=== PATIENT | female | born 1980 | race Caucasian/White ===

== ENCOUNTER 2018-07-03 17:24 | Observation (INO) | payer OTHER ==
[2018-07-03 17:32] VITALS: BMI 25.4
--- NOTE | 2018-07-03 17:34 | PDOC ---
Rapid Medical Evaluation Time Seen by Provider: 07/03/18 17:30 Medical Evaluation: 07/03/18 17:31 The patient c/o: chest pain x 3days, went to Md in [place] and recommended Ed visit, no OCP, no smoking, no sx, no travel The patient on brief exam: no reproducible CP, nsr with inverted T waves in V1-3 Patient ordered for: cardiac w/U The patient to proceed to the ED Discharge Disposition - Diagnosis Chest pain - Referrals - Patient Instructions - Post Discharge Activity
[2018-07-03 18:06] LABS: BASO % 0.4 % (0-2.0); EOS % 0.9 % (0-4.5); HEMATOCRIT 40.6 % (32.4-45.2); HEMOGLOBIN 14.1 GM/dL (10.7-15.3); LYMPH % 23.9 % (8-40); MCH 30.1 pg (25.7-33.7); MCHC 34.6 g/dl (32.0-36.0); MEAN PLT VOLUME 7.8 fl (7.5-11.1); MONO % 4.4 % (3.8-10.2); NEUT % 70.4 % (42.8-82.8); PLATELET COUNT 299 K/MM3 (134-434); RBC 4.67 M/mm3 (3.60-5.2); RDW 12.8 % (11.6-15.6); WHITE BLOOD COUNT 8.6 K/mm3 (4.0-10.0)
--- NOTE | 2018-07-03 18:11 | PDOC ---
Attending Attestation - HPI HPI: 07/03/18 19:51 Patient is a 38 year old female with no significant past medical history who presents to the ED with complaints of chest pain that began 5 years ago. Patient reports chest pain began x5 years ago but states it has currently begun to increase in intensity over the last 3 days, prompting her to go to urgent care for further evaluation. She reports urgent care advised patient to come into the ED for further evaluation. Patient reports chest pain is a squeezing pain that radiates to her back as well experiencing associated symptoms of nausea and shortness of breath. Denies contact with sick individuals, out of state travelling. Denies dysuria, hematuria. Denies constipation, diarrhea. Denies trauma to affected area. Denies any other symptoms. Allergies: None Social history: no smoking. No alcohol. No illicit drugs, Surgical history: Hernia surgery. PMD: Dr. Gianni amin - Physicial Exam PE: 07/03/18 19:51 GENERAL: Awake, alert, and fully oriented, in no acute distress HEAD: No signs of trauma EYES: PERRLA, EOMI, sclera anicteric, conjunctiva clear ENT: Auricles normal inspection, hearing grossly normal, nares patent, oropharynx clear without exudates. Moist mucosa NECK: Normal ROM, supple, no lymphadenopathy, JVD, or masses LUNGS: Breath sounds equal, clear to auscultation bilaterally. No wheezes, and no crackles HEART: No anterior chest wall tenderness. Regular rate and rhythm, normal S1 and S2, no murmurs, rubs or gallops ABDOMEN: Soft, nontender, normoactive bowel sounds. No guarding, no rebound. No masses EXTREMITIES: Normal range of motion, no edema. No clubbing or cyanosis. No cords, erythema, or tenderness NEUROLOGICAL: Cranial nerves II through XII grossly intact. Normal speech, normal gait SKIN: Warm, Dry, normal turgor, no rashes or lesions noted. <Brian Argueta - Last Filed: 07/03/18 19:51> - Resident Resident Name: Prince Wolfe - ED Attending Attestation I have performed the following: I have examined & evaluated the patient, The case was reviewed & discussed with the resident, I agree w/resident's findings & plan, Exceptions are as noted - Medical Decision Making 07/03/18 18:11 I, Dr. Stacy Izquierdo, DO, attest that this document has been prepared under my direction and personally reviewed by me in its entirety. I further attest, that it accurately reflects all work, treatment, procedures and medical decision -making performed by me. 07/03/18 19:33 a/p: 38yo female with intermittent episodes of cp -ekg shows t wave inversions -currently cp free -states intitially had episodes of cp with exertion, but now episodes at rest -will send trops, cxr, will need obs for cards eval and echo -will place in obs under symphony -pt updated with the plan and agrees to stay overnight -pt had gone to urgent care earlier today who sent her here for further eval 07/03/18 19:37 trop negative labs reviewed and stable 07/03/18 19:53 pt given asa in the ED <Stacy Izquierdo - Last Filed: 07/03/18 19:53> Heart Score/ECG Review - ECG Intrepretation Comment:: 07/03/18 18:11 sinus at 75, nl axis, t wave inversions v1-3 - abnl ekg <Stacy Izquierdo - Last Filed: 07/03/18 19:53>
[2018-07-03 18:34] LABS: ALBUMIN 3.8 g/dl (3.4-5.0); ANION GAP 11 MMOL/L (8-16); BILIRUBIN,TOTAL 1.1 mg/dL (0.2-1.0); BLOOD UREA NITROGEN 9 mg/dL (7-18); CALCIUM 8.6 mg/dL (8.5-10.1); CHLORIDE 109 mmol/L (98-107); CO2 22 mmol/L (21-32); CREATININE 0.6 mg/dL (0.55-1.02); GLUCOSE,RANDOM 89 mg/dL (74-106); POTASSIUM 3.7 mmol/L (3.5-5.1); SGOT/AST 18 U/L (15-37); SGPT/ALT 41 U/L (12-78); SODIUM 142 mmol/L (136-145); TOT PROT 7.1 g/dl (6.4-8.2)
[2018-07-03 18:37] LABS: ALK PHOS 74 U/L (45-117)
[2018-07-03] MEDS ORDERED: ASPIRIN 81 MG CHEWABLE TABLETS PO ONE (18:43)
[2018-07-03] MEDS ORDERED: ASPIRIN 81 MG CHEWABLE TABLETS ONE (18:48)
--- NOTE | 2018-07-03 18:50 | PDOC ---
History of Present Illness - General Chief Complaint: Chest Pain Stated Complaint: CHEST PAIN Time Seen by Provider: 07/03/18 17:30 History Source: Patient Exam Limitations: No Limitations - History of Present Illness Initial Comments: 07/03/18 18:45 38 y/o F was sent from urgent care for chest pain. Patient states that pain started 5 years ago but but from last 3 days it has gotten worse. Pain occurs while walking abut now it also happens while lying in bed. Pain last from about 5-10 minutes, squeezing type,radiates to back associated with sob and nausea. Nothing makes it better or worse. Also reports palpitations with pain. Denies difficulty in swallowing, trauma to chest , long travel or sitting for longer period of time. Past History - Past Medical History Allergies/Adverse Reactions: Allergies Allergy/AdvReac Type Severity Reaction Status Date / Time No Known Allergies Allergy Verified 07/03/18 17:32 Home Medications: Ambulatory Orders NK [No Known Home Medication] 07/03/18 COPD: No - Surgical History Abdominal Surgery: (HERNIA) - Suicide/Smoking/Psychosocial Hx Smoking History: Never smoked Hx Alcohol Use: No Drug/Substance Use Hx: No Review of Systems - Review of Systems Constitutional: Yes: Weight Stable. No: Fever, Loss of Appetite, Night Sweats, Weakness HEENTM: No: Blurred Vision, Double Vision, Throat Swelling, Difficulty Swallowing Respiratory: Yes: Shortness of Breath. No: Stridor, Wheezing Cardiac (ROS): Yes: Chest Pain, Lightheadedness, Palpitations ABD/GI: Yes: Nausea. No: Blood Streaked Bowels, Constipated, Diarrhea, Difficulty Swallowing, Poor Appetite, Rectal Bleeding, Indigestion Neurological: No: Headache, Numbness, Paresthesia, Seizure, Tingling *Physical Exam - Vital Signs Last Vital Signs Temp Pulse Resp BP Pulse Ox 98.7 F 79 18 123/73 100 07/03/18 17:28 07/03/18 17:28 07/03/18 17:28 07/03/18 17:28 07/03/18 17:28 - Physical Exam General Appearance: Yes: Appropriately Dressed HEENT: positive: Normal ENT Inspection, Normal Voice, Pharynx Normal. negative : Tonsillar Exudate Neck: negative: Tender, Decreased range of motion Respiratory/Chest: positive: Chest Tender (in left side ), Lungs Clear, Normal Breath Sounds. negative: Respiratory Distress, Rhonchi, Stridor Cardiovascular: positive: Regular Rhythm, Regular Rate, S1, S2. negative: Murmur Gastrointestinal/Abdominal: positive: Normal Bowel Sounds. negative: Tender, Distended, Guarding, Rebound, Tenderness Extremity: negative: Tender, Pedal Edema Neurologic: positive: concrete stone finisher II-XII NML intact, Motor Strength 5/5 ED Treatment Course - LABORATORY CBC & Chemistry Diagram: 07/03/18 17:50 07/03/18 17:50 - ADDITIONAL ORDERS Additional order review: Laboratory Results 07/03/18 17:50 Sodium 142 Potassium 3.7 Chloride 109 H Carbon Dioxide 22 Anion Gap 11 BUN 9 Creatinine 0.6 Creat Clearance w eGFR > 60 Random Glucose 89 Calcium 8.6 Magnesium 2.0 Total Bilirubin 1.1 H AST 18 ALT 41 Alkaline Phosphatase 74 Creatine Kinase 79 Troponin I < 0.02 Total Protein 7.1 Albumin 3.8 07/03/18 17:50 RBC 4.67 MCV 87.0 MCHC 34.6 RDW 12.8 MPV 7.8 Neutrophils % 70.4 Lymphocytes % 23.9 Monocytes % 4.4 Eosinophils % 0.9 Basophils % 0.4 Medical Decision Making - Medical Decision Making 07/03/18 18:53 38 y/o F was sent from urgent care for chest pain. Patient states that pain started 5 years ago but but from last 3 days it has gotten worse. Pain occurs while walking abut now it also happens while lying in bed. Pain last from about 5-10 minutes, squeezing type,radiates to back associated with sob and nausea. Nothing makes it better or worse. Also reports palpitations with pain. Denies difficulty in swallowing, trauma to chest , long travel or sitting for longer period of time. Patient ekg shows t wave inversion in lead v1,v2 and v3. No previous ekg available for comparison. 1st troponin is normal. We will get second troponin. As patient has history suspicious for CAD with t wave inversions we will give her aspirin 324mg and will send cardiology consult. We will keep patient under observation and will get ECHO. HEART score 3 to [address] Plan discussed with attending Dr. Izquierdo. We will keep her in tele obs. Microblog hospitalist for tele obs. Discussed with Dr. Chay iDnh resident. Agreed for tele obs. *DC/Admit/Observation/Transfer Diagnosis at time of Disposition: Chest pain - Referrals - Patient Instructions - Post Discharge Activity
[2018-07-03] MEDS ORDERED: ATORVASTATIN CA 80 MG TABLET (FP) PO ONE (19:12)
[2018-07-03] MEDS ORDERED: LORATADINE 10 MG TABLET PO ONE (19:30)
--- NOTE | 2018-07-03 19:51 | PN ---
Teaching Attending Note Name of Resident: Nancy Jones ATTENDING PHYSICIAN STATEMENT I saw and evaluated the patient. I reviewed the resident's note and discussed the case with the resident. I agree with the resident's findings and plan as documented. SUBJECTIVE: Patient is a 38 year old woman who was sent from urgent care for chest pain. Patient states that pain started 5 years ago but but from last 3 days it has gotten worse. Pain occurs while walking about now it also happens while lying in bed. Pain last from about 5-10 minutes, squeezing type, radiates to her back and is associated with SOB and nausea. Nothing makes it better or worse. Also reports palpitations with pain. Denies difficulty in swallowing, trauma to chest , long travel or sitting for longer period of time. OBJECTIVE: Alert Vital Signs Period Temp Pulse Resp BP Sys/Hammond Pulse Ox Last 24 Hr 98.7 F 79 18 123/73 98-100 HEENT: No Jaundice, eye redness or discharge, PERRLA, EOMI. Normocephalic, atraumatic. External ears are normal and hearing is grossly intact. No nasal discharge. Neck: Supple, nontender. No palpable adenopathy or thyromegaly. No JVD Chest: Good effort. Clear to auscultation and percussion. Heart: Regular. No S3, rub or murmur Abdomen: Not distended, soft, mild epigastric tenderness and no HSM. No rebound or guarding. Normoactive bowel sounds. Ext: Peripheral pulses intact. No leg edema. Skin: Warm and dry. No petechiae, rash or ecchymosis. Neuro: Alert. Oriented x3. CN 2-12 grossly intact. Sensation grossly intact in all four extremities and DTR are symmetric. Home Medications Medication Instructions Recorded NK [No Known Home Medication] 07/03/18 Abnormal Lab Results 07/03/18 17:50 Chloride 109 H Total Bilirubin 1.1 H ASSESSMENT AND PLAN: 1. Chest pain - Pain is atypical. Troponin is negative and EKG shows T wave inversion in V1 to V4. Will observe in telemetry to rule out ACS. Get fasting lipids, ECHO and cardiology consult. Pain may be of gastrointestinal origin in view of epigastric tenderness and elevated bilirubin. Will get upper abdominal sonogram and treat with PPI. GI consult for EGD. 2. DVT prophylaxis - Lovenox 40 mg SQ q 24 hours. 3. Advance directives - Full code
[2018-07-03] MEDS ORDERED: LORATADINE 10 MG TABLET ONE (19:53)
[2018-07-03] MEDS ORDERED: ATORVASTATIN CA 80 MG TABLET (FP) ONE (19:53)
--- NOTE | 2018-07-03 20:56 | HP ---
CHIEF COMPLAINT: Chest pain PCP: Dr. 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 The chest pain started 5 years ago and occurred while walking however now it is occurring at rest and while laying down, It use to come and go but now its constant. At worst the pain has been 9/10, currently it is 5-6/10. She describes the tenderness on her left chest and midsternum, Reproducible with palpation, squeezing, tightness that "Holds her from breathing" and radiates to her back. It is accompanied by SOB, Nausea, Palpitations, Lightheadedness and chills. She says nothing helps relieve the pain. She has been unable to identify any triggers. She does acknowledge some stress from her childrens school but no other feelings of stress or anxiety. Denies any recent trauma/falls, long plane/car rides, OCP use , medication changes. She has had no recent rashes in the area. Her diet does not consist of spicy or greasy food. The pain does not change with movement of her Arm, neck or chest. She has seen Dr. Gann in May for this pain and was given Naproxen however this only helped slightly. Of note, her LMP was one week ago. ER course was notable for: (1) EKG: NSR, T wave inversions in V1-V3 (2) ASA 324, Atorvastatin 80 (3) Recent Travel: Denies PAST MEDICAL HISTORY: Denies PAST SURGICAL HISTORY: Hernia repair (7 years ago) Social History: Smoking: Denies Alcohol: Denies Drugs: Denies Occupation: Cleaning service Residence: Lives in apartment with 2 children Ambulates: without assitance Family History: Allergies No Known Allergies Allergy (Verified 07/03/18 17:32) HOME MEDICATIONS: Home Medications Medication Instructions Recorded NK [No Known Home Medication] 07/03/18 REVIEW OF SYSTEMS CONSTITUTIONAL: Present: chills, Absent: fever, diaphoresis, generalized weakness, malaise, loss of appetite, weight change HEENT: Absent: rhinorrhea, nasal congestion, throat pain, throat swelling, difficulty swallowing, mouth swelling, ear pain, eye pain, visual changes CARDIOVASCULAR: Present: chest pain, lightheadedness Absent: syncope, palpitations, irregular heart rate, peripheral edema RESPIRATORY: Present: shortness of breath, Absent: cough, dyspnea with exertion, orthopnea, wheezing, stridor, hemoptysis GASTROINTESTINAL: Present: Midepigastric abdominal pain, nausea Absent: abdominal distension, vomiting, diarrhea, constipation, melena, hematochezia GENITOURINARY: Absent: dysuria, frequency, urgency, hesitancy, hematuria, flank pain, genital pain MUSCULOSKELETAL: Absent: myalgia, arthralgia, joint swelling, back pain, neck pain SKIN: Absent: rash, itching, pallor HEMATOLOGIC/IMMUNOLOGIC: Absent: easy bleeding, easy bruising, lymphadenopathy, frequent infections ENDOCRINE: Absent: unexplained weight gain, unexplained weight loss, heat intolerance, cold intolerance NEUROLOGIC: Absent: headache, focal weakness or paresthesias, dizziness, unsteady gait, seizure, mental status changes, bladder or bowel incontinence PSYCHIATRIC: Absent: anxiety, depression, suicidal or homicidal ideation, hallucinations. PHYSICAL EXAMINATION Vital Signs - 24 hr 07/03/18 07/03/18 17:28 18:10 Temperature 98.7 F Pulse Rate 79 Respiratory 18 Rate Blood Pressure 123/73 O2 Sat by Pulse 100 98 Oximetry (%) GENERAL: Awake, alert, and fully oriented, in no acute distress. EYES: PERRL, EOMI THROAT: Oropharynx clear without exudates. Moist mucous membranes. NECK: Normal ROM, Supple, No JVD, No carotid bruit LUNGS: Breath sounds equal, clear to auscultation bilaterally. No wheezes, and no crackles. Unable to take very deep breaths as it causes pain HEART: Regular rate and rhythm, normal S1 and S2 without murmur. ABDOMEN: Soft, Tender to palpation in the midepigastrium, not distended, normoactive bowel sounds, no guarding, no rebound, no masses. No hepatomegaly or splenomegaly. MUSCULOSKELETAL: No CVA tenderness. UPPER EXTREMITIES: 2+ pulses, Normal range of motion LOWER EXTREMITIES: 2+ pulses, No calf tenderness. No peripheral edema. Normal range of motion. SKIN: Warm, dry, no rashes or lesions noted, normal capillary refill. Laboratory Results - last 24 hr 07/03/18 07/03/18 07/03/18 17:50 17:50 18:35 WBC 8.6 RBC 4.67 Hgb 14.1 Hct 40.6 MCV 87.0 MCH 30.1 MCHC 34.6 RDW 12.8 Plt Count 299 MPV 7.8 Absolute Neuts (auto) 6.0 Neutrophils % 70.4 Lymphocytes % 23.9 Monocytes % 4.4 Eosinophils % 0.9 Basophils % 0.4 Nucleated RBC % 0 Sodium 142 Potassium 3.7 Chloride 109 H Carbon Dioxide 22 Anion Gap 11 BUN 9 Creatinine 0.6 Creat Clearance w eGFR > 60 Random Glucose 89 Calcium 8.6 Magnesium 2.0 Total Bilirubin 1.1 H AST 18 ALT 41 Alkaline Phosphatase 74 Creatine Kinase 79 Troponin I < 0.02 Total Protein 7.1 Albumin 3.8 Urine HCG, Qual Negative Active Medications Enoxaparin Sodium (Lovenox -) 40 mg SQ DAILY ELODIA Pantoprazole Sodium (Protonix Iv) 40 mg IVPUSH DAILY ELODIA ASSESSMENT/PLAN: 38 y/o primarily french speaking female with no significant PMHx presents with chest pain that has been worsening over the past 3 days and will be observed in Tele 1. Atypical Chest pain R/O ACS - Troponin < 0.02 X1 - EKG: NSR, T wave inversions in V1-V3 - CXR pending - 2nd Troponin and EKG Ordered - Fasting Lipids ordered - Echo ordered for this AM - Cardiology (Dr. Noble) Consulted - NPO after midnight for possible stress test 2. Elevated T. Bili with Midepigastric Tenderness - Abdominal US ordered to r/o cholelithiasis - IV Protonix - GI (Dr. Morel) Consulted 3. FEN - PO Fluids - Lytes wnl - Cholesterol controlled diet 4. PPx - DVT: Lovenox 40mg SQ Q24H Dispo: Tele-Obs Visit type - Emergency Visit Emergency Visit: Yes ED Registration Date: 07/03/18 Care time: The patient presented to the Emergency Department on the above date and was hospitalized for further evaluation of their emergent condition. - New Patient This patient is new to me today: Yes Date on this admission: 07/04/18 - Critical Care Critical Care patient: No Hospitalist Screening - Colonoscopy Questionnaire Colonoscopy Questionnaire: Colonoscopy Questionnaire - Patient: 50 - 75 years old and never had a screening colonoscopy: Unknown History of colon or rectal polyps, or CA: Unknown History of IBD, Crohn's disease or UC: Unknown History of abdominal radiation therapy as a child: Unknown - Relative: 1 with colon or rectal CA, or polyps at age 60 or younger: Unknown Colon or rectal CA diagnosed at age 45 or younger: Unknown Multiple relatives with colon or rectal CA: Unknown - Outcome: Screening Result: Negative Screen
[2018-07-04 07:04] LABS: BASO % 0.4 % (0-2.0); EOS % 2.2 % (0-4.5); HEMATOCRIT 39.9 % (32.4-45.2); HEMOGLOBIN 13.8 GM/dL (10.7-15.3); LYMPH % 27.1 % (8-40); MCH 29.9 pg (25.7-33.7); MCHC 34.5 g/dl (32.0-36.0); MEAN CELL VOLUME 86.6 fl (80-96); MEAN PLT VOLUME 7.5 fl (7.5-11.1); MONO % 4.8 % (3.8-10.2); NEUT % 65.5 % (42.8-82.8); PLATELET COUNT 248 K/MM3 (134-434); RDW 12.7 % (11.6-15.6); WHITE BLOOD COUNT 6.6 K/mm3 (4.0-10.0)
[2018-07-04 07:16] LABS: ALBUMIN 3.3 g/dl (3.4-5.0); ANION GAP 9 MMOL/L (8-16); BILIRUBIN,TOTAL 1.1 mg/dL (0.2-1.0); BLOOD UREA NITROGEN 9 mg/dL (7-18); CALCIUM 8.1 mg/dL (8.5-10.1); CHLORIDE 108 mmol/L (98-107); CO2 23 mmol/L (21-32); CREATININE 0.5 mg/dL (0.55-1.02); GLUCOSE,RANDOM 80 mg/dL (74-106); MAGNESIUM 2.1 mg/dL (1.8-2.4); PHOSPHOROUS 4.1 mg/dL (2.5-4.9); POTASSIUM 3.9 mmol/L (3.5-5.1); SGOT/AST 21 U/L (15-37); SGPT/ALT 37 U/L (12-78); SODIUM 140 mmol/L (136-145); TOT PROT 6.5 g/dl (6.4-8.2)
[2018-07-04 07:17] LABS: ALK PHOS 73 U/L (45-117)
--- NOTE | 2018-07-04 08:10 | CON.GI ---
Consult Consult Specialty:: GI Reason for Consultation:: elevated bili, chest pain - History of Present Illness History of Present Illness: Chart reviewed. Events noted. 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 The chest pain started 5 years ago and occurred while walking however now it is occurring at rest and while laying down, It use to come and go but now its constant. At worst the pain has been 9/10, currently it is 5-6/ 10. She describes the tenderness on her left chest and midsternum, Reproducible with palpation, squeezing, tightness that "Holds her from breathing" and radiates to her back. It is accompanied by SOB, Nausea, Palpitations, Lightheadedness and chills. She says nothing helps relieve the pain. She has been unable to identify any triggers. She does acknowledge some stress from her childrens school but no other feelings of stress or anxiety. Denies any recent trauma/falls, long plane/car rides, OCP use, medication changes. She has had no recent rashes in the area. Her diet does not consist of spicy or greasy food. The pain does not change with movement of her Arm, neck or chest. She has seen Dr. Gann in May for this pain and was given Naproxen however this only helped slightly. Of note, her LMP was one week ago. ER course was notable for: (1) EKG: NSR, T wave inversions in V1-V3 (2) ASA 324, Atorvastatin 80 Normal CBC, CMP (t. bili 1.1) Negative cardiac stress test 07/04/18 US liver 07/04/18: HISTORY PROVIDED: Epigastric pain. Real time examination of the abdomen demonstrates the following: The gallbladder is normal in size. It does contain a 1.5 cm gallstone, as well as a small amount of biliary sludge. While there is no sonographic evidence of acute cholecystitis, if this is clinically suspected, a follow-up HIDA scan may be warranted. There is no evidence of intra or extrahepatic biliary duct dilatation. The liver is normal in size. It is hypoechoic in texture consistent with diffuse fatty infiltration. There are 2 small hypoechoic areas within the right and left lobes that may represent fatty sparing. An hepatic neoplasm cannot be excluded and a follow-up contrast enhanced CT scan, utilizing hepatic protocol, may also be warranted. Hepatopedal flow is documented within the main portal vein. The pancreas is normal in size and texture with no pancreatic masses identified. There is no evidence of hydronephrosis or acute abnormalities of the right kidney. There is no evidence of AAA. The IVC is patent. IMPRESSION: 1. Cholelithiasis. 2. Diffuse fatty infiltration of the liver with possible small hepatic masses versus fatty sparing. Clinical correlation and follow-up recommended. Please see above discussion. Ukrainian-speaking. No melena, hematochezia, hematemesis, jaundice, dysphagia, odynophagia, changes in bowels, weight loss. Mild epigastric tenderness and reproducible, left persistent chest pain on exam. - History Source History Provided By: Patient, Medical Record - Alcohol/Substance Use Hx Alcohol Use: No - Smoking History Smoking history: Never smoked Home Medications - Allergies Allergies/Adverse Reactions: Allergies Allergy/AdvReac Type Severity Reaction Status Date / Time No Known Allergies Allergy Verified 07/03/18 17:32 - Home Medications Home Medications: Ambulatory Orders NK [No Known Home Medication] 07/03/18 Family Disease History - Family Disease History Family History: Unremarkable Review of Systems Findings/Remarks: as per ED, H&P, HPI Physical Exam-GI Vital Signs: Vital Signs Temperature 98.7 F 07/03/18 17:28 Pulse Rate 72 07/04/18 06:00 Respiratory Rate 18 07/04/18 06:00 Blood Pressure 120/70 07/04/18 06:00 O2 Sat by Pulse Oximetry (%) 100 07/04/18 06:00 Constitutional: Yes: Well Nourished, No Distress, Calm Eyes: Yes: Conjunctiva Clear HENT: Yes: Atraumatic Neck: Yes: Supple Cardiovascular: Yes: Regular Rate and Rhythm Respiratory: Yes: Regular Gastrointestinal Inspection: No: Ascites, Distention ...Auscultate: Yes: Normoactive Bowel Sounds ...Palpate: Yes: Tenderness (epig., mild, on deep palpation. Also see HPI). No : Firm/Rigid, Guarding, Mass Neurological: Yes: Alert, Oriented Labs: CBC, BMP 07/04/18 06:30 07/04/18 06:30 Laboratory Last Values WBC 6.6 K/mm3 (4.0-10.0) 07/04/18 06:30 RBC 4.60 M/mm3 (3.60-5.2) 07/04/18 06:30 Hgb 13.8 GM/dL (10.7-15.3) 07/04/18 06:30 Hct 39.9 % (32.4-45.2) 07/04/18 06:30 MCV 86.6 fl (80-96) 07/04/18 06:30 MCH 29.9 pg (25.7-33.7) 07/04/18 06:30 MCHC 34.5 g/dl (32.0-36.0) 07/04/18 06:30 RDW 12.7 % (11.6-15.6) 07/04/18 06:30 Plt Count 248 K/MM3 (134-434) 07/04/18 06:30 MPV 7.5 fl (7.5-11.1) 07/04/18 06:30 Absolute Neuts (auto) 4.3 K/mm3 (1.5-8.0) 07/04/18 06:30 Neutrophils % 65.5 % (42.8-82.8) 07/04/18 06:30 Lymphocytes % 27.1 % (8-40) 07/04/18 06:30 Monocytes % 4.8 % (3.8-10.2) 07/04/18 06:30 Eosinophils % 2.2 % (0-4.5) D 07/04/18 06:30 Basophils % 0.4 % (0-2.0) 07/04/18 06:30 Nucleated RBC % 0 % (0-0) 07/04/18 06:30 Sodium 140 mmol/L (136-145) 07/04/18 06:30 Potassium 3.9 mmol/L (3.5-5.1) 07/04/18 06:30 Chloride 108 mmol/L (98-107) H 07/04/18 06:30 Carbon Dioxide 23 mmol/L (21-32) 07/04/18 06:30 Anion Gap 9 MMOL/L (8-16) 07/04/18 06:30 BUN 9 mg/dL (7-18) 07/04/18 06:30 Creatinine 0.5 mg/dL (0.55-1.02) L 07/04/18 06:30 Creat Clearance w eGFR > 60 (>60) 07/04/18 06:30 Random Glucose 80 mg/dL (74-106) 07/04/18 06:30 Calcium 8.1 mg/dL (8.5-10.1) L 07/04/18 06:30 Phosphorus 4.1 mg/dL (2.5-4.9) 07/04/18 06:30 Magnesium 2.1 mg/dL (1.8-2.4) 07/04/18 06:30 Total Bilirubin 1.1 mg/dL (0.2-1.0) H 07/04/18 06:30 AST 21 U/L (15-37) 07/04/18 06:30 ALT 37 U/L (12-78) 07/04/18 06:30 Alkaline Phosphatase 73 U/L (45-117) 07/04/18 06:30 Creatine Kinase 79 IU/L (26-192) 07/03/18 17:50 Troponin I < 0.02 ng/ml (0.00-0.05) 07/04/18 06:30 Total Protein 6.5 g/dl (6.4-8.2) 07/04/18 06:30 Albumin 3.3 g/dl (3.4-5.0) L 07/04/18 06:30 Triglycerides 118 mg/dL (35-160) 07/04/18 06:30 Cholesterol 179 mg/dL (50-200) 07/04/18 06:30 Total LDL Cholesterol 116 mg/dL (5-100) H 07/04/18 06:30 HDL Cholesterol 63 mg/dL (40-60) H 07/04/18 06:30 Urine HCG, Qual Negative 07/03/18 18:35 Imaging - Results Ultrasound: Report Reviewed Other: Report Reviewed (echo, stress test) Problem List - Problems (1) Atypical chest pain Code(s): R07.89 - OTHER CHEST PAIN (2) Costochondritis Code(s): M94.0 - CHONDROCOSTAL JUNCTION SYNDROME [TIETZE] (3) Epigastric abdominal tenderness Code(s): R10.816 - EPIGASTRIC ABDOMINAL TENDERNESS (4) Cholelithiasis Code(s): K80.20 - CALCULUS OF GALLBLADDER W/O CHOLECYSTITIS W/O OBSTRUCTION Assessment/Plan A 38F with the above history and findings on imaging, labs, exams. Do not suspect significant GI-related pathology at this time requiring hospitalization and an inpatient work up. Recommend OP GI follow up next week.
[2018-07-04] MEDS ORDERED: PANTOPRAZOLE SODIUM 40 MG VIAL IVPUSH SCH (10:00)
[2018-07-04] MEDS ORDERED: ENOXAPARIN NA (PORCINE) 40 MG/0.4 ML DISP.SYRIN SQ SCH (10:00)
[2018-07-04 10:12] LABS: CHOLESTEROL 179 mg/dL (50-200); TRIGLYCERIDES 118 mg/dL (35-160)
[2018-07-04 10:14] LABS: HDL CHOLESTEROL 63 mg/dL (40-60)
--- NOTE | 2018-07-04 10:30 | EKG ---
Test Reason : Blood Pressure : / mmHG Vent. Rate : 071 BPM Atrial Rate : 071 BPM P-R Int : 108 ms QRS Dur : 082 ms QT Int : 414 ms P-R-T Axes : 024 019 028 degrees QTc Int : 449 ms SINUS RHYTHM WITH SHORT [place] OTHERWISE NORMAL ECG NO PREVIOUS ECGS AVAILABLE Confirmed by LATANYA GRANADOS, TULIO ([id number]) on 07/04/2018 10:30:01 AM Referred By: Confirmed By:TULIO PELAEZ MD
--- NOTE | 2018-07-04 11:39 | CON.CARD ---
Cardiology Consult (text) - Consultation Consultation Note: cc: cp hpi: 38 f no sig pmhx here with cp. CP has been present for about 5 years. Occurs daily, central chest tightness, lasts for minutes, occurs with rest or exertion. Worse past few days so came to ER. No sob, palps, dizzy loc pnd orthopnea le edema. 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 No hx hrt dz. pmh: per hpi psh: hernia social: no tob fam: no premature cad or scd ros: per hpi; no nvd fever cough cole vision changes gib hematuria muscle pain meds: Home Medications Medication Instructions Recorded NK [No Known Home Medication] 07/03/18 pe: Vital Signs Period Temp Pulse Resp BP Sys/Hammond Pulse Ox Last 24 Hr 98.7 F-98.9 F 72-79 16-18 110-123/67-75 98-100 nad no jvd rrr s1s2 no mrg cta bl nl eff aao3 no le e/c/c abd nt nd pos bs no jaundice diaphroesi pos dp pt Current Medications Generic Name Dose Route Start Last Admin Trade Name Frekia PRN Reason Stop Dose Admin Enoxaparin Sodium 40 mg 07/04/18 10:00 07/04/18 09:34 Lovenox - SQ 40 mg DAILY [facility] Administration Pantoprazole Sodium 40 mg 07/04/18 10:00 07/04/18 09:35 Protonix Iv IVPUSH 40 mg DAILY [facility]OD[facility] Administration Laboratory Last Values WBC 6.6 K/mm3 (4.0-10.0) 07/04/18 06:30 RBC 4.60 M/mm3 (3.60-5.2) 07/04/18 06:30 Hgb 13.8 GM/dL (10.7-15.3) 07/04/18 06:30 Hct 39.9 % (32.4-45.2) 07/04/18 06:30 MCV 86.6 fl (80-96) 07/04/18 06:30 MCH 29.9 pg (25.7-33.7) 07/04/18 06:30 MCHC 34.5 g/dl (32.0-36.0) 07/04/18 06:30 RDW 12.7 % (11.6-15.6) 07/04/18 06:30 Plt Count 248 K/MM3 (134-434) 07/04/18 06:30 MPV 7.5 fl (7.5-11.1) 07/04/18 06:30 Absolute Neuts (auto) 4.3 K/mm3 (1.5-8.0) 07/04/18 06:30 Neutrophils % 65.5 % (42.8-82.8) 07/04/18 06:30 Lymphocytes % 27.1 % (8-40) 07/04/18 06:30 Monocytes % 4.8 % (3.8-10.2) 07/04/18 06:30 Eosinophils % 2.2 % (0-4.5) D 07/04/18 06:30 Basophils % 0.4 % (0-2.0) 07/04/18 06:30 Nucleated RBC % 0 % (0-0) 07/04/18 06:30 Sodium 140 mmol/L (136-145) 07/04/18 06:30 Potassium 3.9 mmol/L (3.5-5.1) 07/04/18 06:30 Chloride 108 mmol/L (98-107) H 07/04/18 06:30 Carbon Dioxide 23 mmol/L (21-32) 07/04/18 06:30 Anion Gap 9 MMOL/L (8-16) 07/04/18 06:30 BUN 9 mg/dL (7-18) 07/04/18 06:30 Creatinine 0.5 mg/dL (0.55-1.02) L 07/04/18 06:30 Creat Clearance w eGFR > 60 (>60) 07/04/18 06:30 Random Glucose 80 mg/dL (74-106) 07/04/18 06:30 Calcium 8.1 mg/dL (8.5-10.1) L 07/04/18 06:30 Phosphorus 4.1 mg/dL (2.5-4.9) 07/04/18 06:30 Magnesium 2.1 mg/dL (1.8-2.4) 07/04/18 06:30 Total Bilirubin 1.1 mg/dL (0.2-1.0) H 07/04/18 06:30 AST 21 U/L (15-37) 07/04/18 06:30 ALT 37 U/L (12-78) 07/04/18 06:30 Alkaline Phosphatase 73 U/L (45-117) 07/04/18 06:30 Creatine Kinase 79 IU/L (26-192) 07/03/18 17:50 Troponin I < 0.02 ng/ml (0.00-0.05) 07/04/18 06:30 Total Protein 6.5 g/dl (6.4-8.2) 07/04/18 06:30 Albumin 3.3 g/dl (3.4-5.0) L 07/04/18 06:30 Triglycerides 118 mg/dL (35-160) 07/04/18 06:30 Cholesterol 179 mg/dL (50-200) 07/04/18 06:30 Total LDL Cholesterol 116 mg/dL (5-100) H 07/04/18 06:30 HDL Cholesterol 63 mg/dL (40-60) H 07/04/18 06:30 Urine HCG, Qual Negative 07/03/18 18:35 cxr: clear lungs ecg: sr nl intervals no ischemic changes a/p: 38 f no sig pmhx here with cp. cp: -chronic for years, likely not cardiac -no signs acs, ecg unremarkable -check echo and ETT, ok for dc from cardiac pov if benign
--- NOTE | 2018-07-04 11:44 | ECHO ---
Name: TISH TERRY Exam:Adult Echocardiogram Study Date: 07/04/2018 07:49 AM Age: 38 yrs Reason For Study: Chest pain Height: 60 in Weight: 130 lb BSA: 1.6 m2 MMode/2D Measurements & Calculations IVSd: 0.85 cm Ao root diam: 2.4 cm LVIDd: 4.2 cm LA dimension: 2.6 cm LVIDs: 2.4 cm LVPWd: 0.91 cm EDV(Teich): 77.3 ml ESV(Teich): 20.5 ml Doppler Measurements & Calculations MV E max lester: 98.5 cm/sec Med Peak E' Lester: 10.3 cm/sec MV A max lester: 52.9 cm/sec Med E/e': 9.5 MV E/A: 1.9 Lat Peak E' Lester: 8.7 cm/sec MV dec time: 0.32 sec Lat E/e': 11.3 Procedure A two-dimensional transthoracic echocardiogram with color flow and Doppler was performed. Left Ventricle The left ventricular size, thickness and function are normal. The left ventricular ejection fraction is normal. Left Ventricular Filling pattern is normal for age. The left ventricular wall motion is rich l. Right Ventricle The right ventricle is normal in size and function. Atria Normal left and right atrial size and function. Mitral Valve The mitral valve is normal in structure and function. There is no mitral valve stenosis. There is tra ce mitral regurgitation. Tricuspid Valve The tricuspid valve is normal in structure and function. There is no tricuspid stenosis. There was insufficient TR detected to calculate RV systolic pressure. Aortic Valve The aortic valve is not well visualized. No hemodynamically significant valvular aortic stenosis. No aortic regurgitation is present. Pulmonic Valve The pulmonic valve is not well visualized. There is no pulmonic valvular stenosis. There is no pulmon ic valvular regurgitation. Great Vessels The aortic root is normal size. Pericardium/Pleura There is no pericardial effusion. Interpretation Summary The left ventricular size, thickness and function are normal The left ventricular ejection fraction is normal. The left ventricular wall motion is normal. There is trace mitral regurgitation. There was insufficient TR detected to calculate RV systolic pressure. Left Ventricular Filling pattern is normal for age. MD Artie James 07/04/2018 11:28 AM
--- NOTE | 2018-07-04 12:56 | EKG ---
Test Reason : Blood Pressure : / mmHG Vent. Rate : 070 BPM Atrial Rate : 070 BPM P-R Int : 126 ms QRS Dur : 086 ms QT Int : 414 ms P-R-T Axes : 012 017 017 degrees QTc Int : 447 ms NORMAL SINUS RHYTHM NORMAL ECG WHEN COMPARED WITH ECG OF 04-JUL-2018 01:31, NO SIGNIFICANT CHANGE WAS FOUND Confirmed by TULIO PELAEZ MD ([id number]) on 07/04/2018 12:56:10 PM Referred By: Confirmed By:TULIO PELAEZ MD
--- NOTE | 2018-07-04 12:58 | TRE ---
Protocol Name : JOSIAH Max Work Load (METS*10) : 90 Time In Exercise Phase : 00:07:21 Max. Systolic BP : 140 mmHg Max Diastolic BP : 76 mmHg Max Heart Rate : 160 BPM Max Predicted Heart Rate : 184 BPM Attending Physician : DR. PELAEZ Reason For Termination : Target Heart Rate Achieved Reason for Test : CHEST PAIN Stress Protocol : JOSIAH Rest HR : 94 BPM PeakEx METs : 9.0 METS Recovery ECG Response (OLD) : Diagnosis : baseline ekg nsr wnl at peak exercise no ischemic symptoms no diagnostic ekg changes, no arrhythmias. Normal stress test Confirmed by LATANYA GRANADOS, TULIO ([id number]) on 07/04/2018 12:58:03 PM
--- NOTE | 2018-07-04 16:10 | PN ---
Teaching Attending Note Name of Resident: Addis King ATTENDING PHYSICIAN STATEMENT I saw and evaluated the patient. I reviewed the resident's note and discussed the case with the resident. I agree with the resident's findings and plan as documented with exceptions below. SUBJECTIVE: Patient seen and examined, feels better, reports small area of chest in sternal and right sternal area, reproducible with touch, and some epigastric pain that has improved. tolerating diet well. Does given history consistent with acid reflux, hungry, asking to eat. No dyspnea, dizziness or new concerns noted. OBJECTIVE: Vital Signs Period Temp Pulse Resp BP Sys/Hammond Pulse Ox Last 24 Hr 98.7 F-98.9 F 72-79 16-18 110-123/67-75 98-100 Intake & Output 07/01/18 07/02/18 07/03/18 07/04/18 23:59 23:59 23:59 23:59 Weight 130 lb General: lying in bed in no acute distress Chest: CTAB, focal area of tendenress of mid sternal and chaitanya-sternal region, no focal area of tenderness of but no swelling/erythema or new concerns Abdomen:soft, mild epigastric tenderness, no RUQ tenderness, neg Gonzalez's sign, no voluntary or involuntary guarding or rigidity, positive bowel sounds extremities: no edema Active Medications Enoxaparin Sodium (Lovenox -) 40 mg SQ DAILY [facility] Last Admin: 07/04/18 09:34 Dose: 40 mg Pantoprazole Sodium (Protonix Iv) 40 mg IVPUSH DAILY [facility] Last Admin: 07/04/18 09:35 Dose: 40 mg Laboratory Results - last 24 hr 07/03/18 07/03/18 07/03/18 17:50 17:50 18:35 WBC 8.6 RBC 4.67 Hgb 14.1 Hct 40.6 MCV 87.0 MCH 30.1 MCHC 34.6 RDW 12.8 Plt Count 299 MPV 7.8 Absolute Neuts (auto) 6.0 Neutrophils % 70.4 Lymphocytes % 23.9 Monocytes % 4.4 Eosinophils % 0.9 Basophils % 0.4 Nucleated RBC % 0 Sodium 142 Potassium 3.7 Chloride 109 H Carbon Dioxide 22 Anion Gap 11 BUN 9 Creatinine 0.6 Creat Clearance w eGFR > 60 Random Glucose 89 Calcium 8.6 Phosphorus Magnesium 2.0 Total Bilirubin 1.1 H AST 18 ALT 41 Alkaline Phosphatase 74 Creatine Kinase 79 Troponin I < 0.02 Total Protein 7.1 Albumin 3.8 Triglycerides Cholesterol Total LDL Cholesterol HDL Cholesterol Urine HCG, Qual Negative 07/04/18 07/04/18 07/04/18 00:24 06:30 06:30 WBC 6.6 RBC 4.60 Hgb 13.8 Hct 39.9 MCV 86.6 MCH 29.9 MCHC 34.5 RDW 12.7 Plt Count 248 MPV 7.5 Absolute Neuts (auto) 4.3 Neutrophils % 65.5 Lymphocytes % 27.1 Monocytes % 4.8 Eosinophils % 2.2 D Basophils % 0.4 Nucleated RBC % 0 Sodium 140 Potassium 3.9 Chloride 108 H Carbon Dioxide 23 Anion Gap 9 BUN 9 Creatinine 0.5 L Creat Clearance w eGFR > 60 Random Glucose 80 Calcium 8.1 L Phosphorus 4.1 Magnesium 2.1 Total Bilirubin 1.1 H AST 21 ALT 37 Alkaline Phosphatase 73 Creatine Kinase Troponin I < 0.02 < 0.02 Total Protein 6.5 Albumin 3.3 L Triglycerides 118 Cholesterol 179 Total LDL Cholesterol 116 H HDL Cholesterol 63 H Urine HCG, Qual Repeat EKG with T inversion in V1 but no longer in V2-V3 Stress test/2D echo/Abdominal US noted ASSESSMENT AND PLAN: 38 yof with atypical CP, EKG changes and epigastric pain. -Atypical chest pain. -EKG changes -Epigastric Pain, likely GERD/possible PUD -Cholelithiasis Plan: 2D echo/stress test noted. Cardiology input appreciated. Tolerating diet well. GI input noted. PPI trial, Avoid fatty/greasy foods. Outpatient GI followup D/c home today with outpatient follow up. Plan discussed with patient and all questions answered.
[2018-07-04 17:16] VITALS: BP 109/70; PULSE 74; TEMP 98.1
--- NOTE | 2018-07-04 21:42 | DS ---
Physical Exam: SUBJECTIVE: Patient seen and examined at bedside. She noted much improvement of her chest pain and midepigastric pain since admission. OBJECTIVE: Vital Signs Period Temp Pulse Resp BP Sys/Hammond Pulse Ox Last 24 Hr 98.1 F-98.9 F 72-76 16-18 109-122/67-75 98-100 PHYSICAL EXAM GENERAL: The patient is awake, alert, and fully oriented, in no acute distress. HEAD: Normal with no signs of trauma. EYES: PERRLA, EOMI, sclera anicteric, conjunctiva clear. NECK: Trachea midline, full range of motion, supple. LUNGS: Breath sounds equal, clear to auscultation bilaterally. HEART: Regular rate and rhythm, S1, S2 without murmur, rub or gallop, +left chest tenderness on palpation. ABDOMEN: Soft, +midepigastric tenderness, nondistended, normoactive bowel sounds. EXTREMITIES: 2+ pulses, warm, well-perfused, no edema. NEUROLOGICAL: Cranial nerves II through XII grossly intact. Normal speech, normal gait. PSYCH: Normal mood, normal affect. SKIN: Warm, dry, normal turgor, no rashes or lesions noted. LABS Laboratory Results - last 24 hr 07/04/18 07/04/18 07/04/18 00:24 06:30 06:30 WBC 6.6 RBC 4.60 Hgb 13.8 Hct 39.9 MCV 86.6 MCH 29.9 MCHC 34.5 RDW 12.7 Plt Count 248 MPV 7.5 Absolute Neuts (auto) 4.3 Neutrophils % 65.5 Lymphocytes % 27.1 Monocytes % 4.8 Eosinophils % 2.2 D Basophils % 0.4 Nucleated RBC % 0 Sodium 140 Potassium 3.9 Chloride 108 H Carbon Dioxide 23 Anion Gap 9 BUN 9 Creatinine 0.5 L Creat Clearance w eGFR > 60 Random Glucose 80 Calcium 8.1 L Phosphorus 4.1 Magnesium 2.1 Total Bilirubin 1.1 H AST 21 ALT 37 Alkaline Phosphatase 73 Troponin I < 0.02 < 0.02 Total Protein 6.5 Albumin 3.3 L Triglycerides 118 Cholesterol 179 Total LDL Cholesterol 116 H HDL Cholesterol 63 H IMAGING CXR - no acute chest pathology Ultrasound limited -Cholielithiasis. Diffuse fatty infiltration of the liver with possible small hepatic masses versus fatty sparing. Stress Test - Baseline EKG NSR wnl. At peak exercise no ischemic symptoms, no diagnostic ekg changes, no arrhythmias. Normal stress test. Echocardiogram - LV size, thickness and function normal; LVEF normal; trace MR; insufficient TR detected to calculate RV systolic pressure; LV filling pattern is normal for age HOSPITAL COURSE: Date of Admission:07/03/18 Date of Discharge: 07/04/18 Patient is a 38 year old female with no significant PMHx presents with chest pain that has been worsening over the past 3 days. The chest pain started 5 years ago and occurred while walking however now it is occurring at rest and while laying down, It use to come and go but now its constant. At worst the pain has been 9/10, currently it is 5-6/10. She describes the tenderness on her left chest and midsternum, reproducible with palpation, squeezing, tightness that "holds her from breathing" and radiates to her back. It is accompanied by SOB, Nausea, Palpitations, Lightheadedness and chills. She says nothing helps relieve the pain. She has been unable to identify any triggers. She does acknowledge some stress from her childrens school but no other feelings of stress or anxiety. Denies any recent trauma/falls, long plane/car rides, OCP use , medication changes. Patient was admitted because of atypical chest pain to rule out ACS. Cardiology and GI were consulted. Patient was given Protonix 40mg which provided relief of epigastric pain. Echo and stress test were ordered which revealed normal results. Ultrasound revealed cholelithiasis. Patient was hemodynamically stable and discharged on instructions to avoid fatty and greasy food and to follow up with PCP and with GI for further management of cholelithiasis. Minutes to complete discharge: 45 Discharge Summary Reason For Visit: CHEST PAIN Condition: Stable - Instructions Diet, Activity, Other Instructions: You came in because you were complaining of chest pain and belly pain. You had a 2D echocardiogram and stress test that were negative for any concerns. You were diagnosed to have gallstones. You can take over the counter prilosec 20 mg daily for 1 week and then as needed once daily till seen by doctor in clinic. Advise to avoid fatty greasy foods. Please avoid spicy foods, take small meals at frequent intervals and avoid eating 2 hours before going to bed. avoid alcohol or Motrin/Ibuprofen or other NSAIDs till seen by your doctor. You are advised to follow up with medical clinic in 1-2 weeks of discharge. Contact info: [id number] [place] [address] Please call on discharge to schedule follow up in 1-2 weeks. Discuss outpatient gastroenterology and surgery referral with your doctor. You can follow up with Dr. Morel (gastronenterologist) (information provided). Call 911 or come to ED if any new or worsening pain, nausea, vomiting, inability to eat or new concerns noted Referrals: Delroy العراقي MD [Staff Physician] - 1 Week Gordon Angel MD [Staff Physician] - Jamie Morel MD [Staff Physician] - 2 Weeks Disposition: HOME - Home Medications Comprehensive Discharge Medication List: Ambulatory Orders Omeprazole Magnesium [Prilosec Otc] 20 mg PO DAILY 7 Days #7 tablet. 07/04/18 This patient is new to me today: Yes Date on this admission: 07/05/18 Emergency Visit: Yes ED Registration Date: 07/03/18 Care time: The patient presented to the Emergency Department on the above date and was hospitalized for further evaluation of their emergent condition. Critical Care patient: No - Discharge Referral [facility]erred [facility] Med P.[facility].: No
--- NOTE | 2018-07-07 14:11 | EKG ---
Test Reason : Blood Pressure : / mmHG Vent. Rate : 075 BPM Atrial Rate : 075 BPM P-R Int : 114 ms QRS Dur : 092 ms QT Int : 406 ms P-R-T Axes : 014 024 022 degrees QTc Int : 453 ms NORMAL SINUS RHYTHM ABNORMAL ECG NO PREVIOUS ECGS AVAILABLE Confirmed by CHERRIE CROCKETT MD ([id number]) on 07/07/2018 2:11:30 PM Referred By: Confirmed By:CHERRIE CROCKETT MD
== END 2018-07-04 17:15 | disposition home or self-care (01) ==
LOC: JER 17:24 → JERBED 19:51
PROVIDERS: ADMIT Internal Medicine; ATTEND Hospitalist
PROC: 3E033GC Introduction of Other Therapeutic Substance into Peripheral Vein, Percutaneous Approach (ICD-10-PCS; principal; 2018-07-03)
PROC: 3E013GC Introduction of Other Therapeutic Substance into Subcutaneous Tissue, Percutaneous Approach (ICD-10-PCS; 2018-07-03)
DX: R07.89 Other chest pain (principal); M94.0 Chondrocostal junction syndrome [Tietze]; R10.816 Epigastric abdominal tenderness; K80.20 Calculus of gallbladder without cholecystitis without obstruction
CPT/HCPCS: 36415; 71046-TC-FY; 76705-TC; 80053; 80061; 82550; 83721; 83735; 84100; 84484; 84703; 85025; 93005; 93010; 93017; 93018; 93306-TC; 96372; 96374; 99285-25; G0378

== ENCOUNTER 2021-07-13 20:53 | Emergency (ER) | payer OTHER ==
[2021-07-13 20:56] VITALS: BP 137/86; PULSE 84; TEMP 98.4; BMI 26.4
[2021-07-13] MEDS ORDERED: ACETAMINOPHEN 500 MG TABLET (FP) PO ONE (21:34)
[2021-07-13] MEDS ORDERED: ACETAMINOPHEN 500 MG TABLET (FP) ONE (22:19)
[2021-07-13 22:26] LABS: BASO % 0.5 % (0-2.0); EOS % 1.1 % (0-4.5); HEMATOCRIT 35.4 % (32.4-45.2); HEMOGLOBIN 12.1 GM/dL (10.7-15.3); LYMPH % 26.5 % (8-40); MCH 28.4 pg (25.7-33.7); MCHC 34.2 g/dl (32.0-36.0); MEAN PLT VOLUME 7.2 fl (7.5-11.1); MONO % 5.5 % (3.8-10.2); NEUT % 66.4 % (42.8-82.8); PLATELET COUNT 250 10^3/uL (134-434); RBC 4.27 M/mm3 (3.60-5.2); RDW 13.8 % (11.6-15.6); WHITE BLOOD COUNT 9.1 K/mm3 (4.0-10.0)
[2021-07-13 22:47] LABS: CHLORIDE 111 mmol/L (98-107); SODIUM 143 mmol/L (136-145)
[2021-07-13 22:49] LABS: ALBUMIN 3.4 g/dl (3.4-5.0); ANION GAP 3 MMOL/L (8-16); BLOOD UREA NITROGEN 12.9 mg/dL (7-18); CALCIUM 8.1 mg/dL (8.5-10.1); CO2 28 mmol/L (21-32); MAGNESIUM 2.3 mg/dL (1.8-2.4)
[2021-07-13 22:50] LABS: GLUCOSE,RANDOM 94 mg/dL (74-106)
[2021-07-13 22:52] LABS: SGOT/AST 15 U/L (15-37); SGPT/ALT 25 U/L (13-61)
[2021-07-13 22:53] LABS: CREATININE 0.6 mg/dL (0.55-1.3)
[2021-07-13 22:54] LABS: BILIRUBIN,TOTAL 0.4 mg/dL (0.2-1); TOT PROT 6.6 g/dl (6.4-8.2)
[2021-07-13 22:55] LABS: ALK PHOS 98 U/L (45-117)
== END 2021-07-13 23:48 | disposition home or self-care (01) ==
LOC: JERFT 20:53 → JER 20:53
DX: M94.0 Chondrocostal junction syndrome [Tietze] (principal)
CPT/HCPCS: 36415; 71046-TC-FY; 80053; 82550; 83735; 84484; 84703; 85025; 85379; 87086; 93005; 93010; 99285-25; C9803; U0003; U0005

== ENCOUNTER 2022-08-17 11:28 | Emergency (ER) | payer OTHER ==
[2022-08-17 12:02] VITALS: BP 124/82; PULSE 83; RESP 19; TEMP 98.3; BMI 25.4
[2022-08-17] MEDS ORDERED: SODIUM CHLORIDE 0.9% 500 ML INFUS.BAG IV ONE (12:27)
[2022-08-17] MEDS ORDERED: ACETAMINOPHEN 1000 MG/100 ML BAG IVPB ONE (14:07)
[2022-08-17] MEDS ORDERED: ACETAMINOPHEN INJECTION 100 ML IVPB ONE (14:24)
[2022-08-17 14:42] LABS: BASO % 0.2 % (0-2.0); EOS % 1.3 % (0-4.5); HEMATOCRIT 38.1 % (32.4-45.2); HEMOGLOBIN 13.1 GM/dL (10.7-15.3); LYMPH % 21.3 % (8-40); MCH 28.3 pg (25.7-33.7); MCHC 34.3 g/dl (32.0-36.0); MEAN CELL VOLUME 82.7 fl (80-96); MEAN PLT VOLUME 8.4 fl (7.5-11.1); MONO % 9.7 % (3.8-10.2); NEUT % 67.5 % (42.8-82.8); PLATELET COUNT 218 10^3/uL (134-434); RBC 4.61 M/mm3 (3.60-5.2); RDW 14.2 % (11.6-15.6); WHITE BLOOD COUNT 5.3 K/mm3 (4.0-10.0)
[2022-08-17 15:12] LABS: BLOOD UREA NITROGEN 21.1 mg/dL (7-18); CALCIUM 8.2 mg/dL (8.5-10.1)
[2022-08-17 15:14] LABS: CREATININE 0.8 mg/dL (0.55-1.3)
[2022-08-17 15:16] LABS: BILIRUBIN,TOTAL 0.5 mg/dL (0.2-1); TOT PROT 7.2 g/dl (6.4-8.2)
[2022-08-17 15:48] LABS: EPI CELLS 28 /uL (0-25.1); HYALINE CASTS 3 /uL (0-3.1); PH,URINE 5.5 (5.0-8.0); URINE APPEARANCE CLOUDY; URINE BACTERIA 540 /uL (0-1359); URINE BILIRUBIN NEGATIVE (NEGATIVE); URINE COLOR YELLOW; URINE GLUCOSE (UA) NEGATIVE (NEGATIVE); URINE KETONE 1+ (NEGATIVE); URINE LEUK ESTERASE NEGATIVE (NEGATIVE); URINE NITRITE NEGATIVE (NEGATIVE); URINE PROTEIN TRACE (NEGATIVE); URINE RBC 333 /uL (0-23.9); URINE WBC 18 /uL (0-25.8)
[2022-08-17 15:49] LABS: HCG,QUALITATIVE URINE NEGATIVE; URINE CRYSTALS CA OXALATE /hpf
[2022-08-17] MEDS ORDERED: KETOROLAC TROMETHAMINE 30 MG/1 ML VIAL IVPB ONE (16:56)
[2022-08-17] MEDS ORDERED: KETOROLAC TROMETHAMINE 30 MG/1 ML VIAL ONE (17:32)
== END 2022-08-17 19:04 | disposition home or self-care (01) ==
LOC: JER 11:28
PROC: 3E0333Z Introduction of Anti-inflammatory into Peripheral Vein, Percutaneous Approach (ICD-10-PCS; principal; 2022-08-17)
PROC: 3E033GC Introduction of Other Therapeutic Substance into Peripheral Vein, Percutaneous Approach (ICD-10-PCS; 2022-08-17)
DX: N20.0 Calculus of kidney (principal)
CPT/HCPCS: 36415; 74176-TC; 80053; 81003; 84703; 85025; 87086; 99285-25

== ENCOUNTER 2025-05-10 15:45 | Emergency (ER) | payer OTHER ==
[2025-05-10 16:17] VITALS: BP 111/74; PULSE 83; RESP 18; TEMP 98.1; BMI 30.2
[2025-05-10 17:13] LABS: EPI CELLS 6 /uL (0-25.1); HYALINE CASTS 0 /uL (0-3.1); URINE APPEARANCE CLEAR; URINE BACTERIA 11 /uL (0-1359); URINE BILIRUBIN NEGATIVE (NEGATIVE); URINE COLOR YELLOW; URINE GLUCOSE (UA) NEGATIVE (NEGATIVE); URINE KETONE NEGATIVE (NEGATIVE); URINE LEUK ESTERASE NEGATIVE (NEGATIVE); URINE NITRITE NEGATIVE (NEGATIVE); URINE PROTEIN NEGATIVE (NEGATIVE); URINE RBC 85 /uL (0-23.9); URINE UROBILINOGEN 1.0 mg/dL (0.2-1.0); URINE WBC 6 /uL (0-25.8)
[2025-05-10 18:28] LABS: ABSOLUTE IMMATURE GRANULOCYTES 0.03 x10^3/uL (0.0-0.031); BASOPHILS # 0.04 x10^3/uL (0.01-0.08); EOSINOPHIL % 1.9 % (0.7-5.8); EOSINOPHILS # 0.15 x10^3/uL (0.04-0.36); MCHC 30.4 g/dl (32.2-35.5); MEAN CELL VOLUME 74.7 fl (79.4-94.8); MEAN PLT VOLUME 9.7 fl (9.4-12.3); MONOCYTE # 0.57 x10^3/uL (0.24-0.86); MONOCYTE % 7.4 % (4.7-12.5); RDW 16.6 % (12.2-17.1)
[2025-05-10 19:11] LABS: CO2 24.0 mmol/L (21-32); GLUCOSE,RANDOM 89.0 mg/dL (74-106)
[2025-05-10 19:15] LABS: CREATININE 0.5 mg/dL (0.55-1.3); SGOT/AST 17.0 U/L (15-37); SGPT/ALT 34.0 U/L (13-61)
[2025-05-10 19:16] LABS: TOT PROT 7.1 g/dl (6.4-8.2)
[2025-05-10 19:17] LABS: ALK PHOS 113.0 U/L (45-117)
[2025-05-10 20:34] LABS: HIV INTERPRETATION NEGATIVE (NEGATIVE)
[2025-05-10 20:35] LABS: HCV DIAGNOSTIC IN-HOUSE W/RFLX NON-REACTIVE (NONREACTIVE)
== END 2025-05-10 21:33 | disposition home or self-care (01) ==
LOC: JER 15:45
DX: O09.511 Supervision of elderly primigravida, first trimester (principal); O20.9 Hemorrhage in early pregnancy, unspecified; O26.891 Other specified pregnancy related conditions, first trimester; R10.2 Pelvic and perineal pain; Z3A.00 Weeks of gestation of pregnancy not specified
CPT/HCPCS: 36415; 76817-TC; 80053; 81003; 84702; 84703; 85025; 86803; 86850; 86900; 86901; 87077; 87086; 87389; 99284-25